=== PATIENT | male | born 1945 | race Caucasian/White ===

== ENCOUNTER 2022-08-01 12:05 | Emergency (ER) | payer MEDICARE, BC ==
[2022-08-01 13:38] LABS: ACETAMINOPHEN 2.8 ug/mL; BLOOD UREA NITROGEN,BUN 16 mg/dL (7.0-18.0); CARBON DIOXIDE,CO2 27.9 mmol/L (21.0-32.0); CHLORIDE,CL 105 mmol/L (98-107); GLUCOSE RANDOM 101 mg/dL (74-106); POTASSIUM,K 3.9 mmol/L (3.5-5.1); SODIUM,NA 140 mmol/L (136-148)
[2022-08-01 13:56] LABS: ESTIMATED GFR 63 mL/min (>60)
[2022-08-01 16:06] LABS: CORONAVIRUS COVID-19 NAA NEGATIVE (NEGATIVE); INFLUENZA A NAA NEGATIVE (NEGATIVE); INFLUENZA B NAA NEGATIVE (NEGATIVE); RESPIRATORY SYNCYTIAL VIR NAA NEGATIVE (NEGATIVE)
[2022-08-02] MEDS ORDERED: LORazepam 1 MG Tab PO ONE (13:38)
== END 2022-08-02 16:00 ==
LOC: MW.ED 12:05
DX: F32.A Depression, unspecified (principal); I10 Essential (primary) hypertension; K21.9 Gastro-esophageal reflux disease without esophagitis; Z79.899 Other long term (current) drug therapy; Z87.891 Personal history of nicotine dependence; Z20.822 Contact with and (suspected) exposure to COVID-19
CPT/HCPCS: 0241U; 36415; 80053; 80143; 80179; 80305; 80307; 81003; 83735; 84443; 84481; 85025; 99284; A9270; 99285

== ENCOUNTER 2024-04-30 07:41 | Day surgery (SDC) | payer MEDICARE, BC ==
[2024-04-30] MEDS ORDERED: Propofol 200 MG/20 ML SDV ONE ×2 (08:25→09:06)
[2024-04-30] MEDS ORDERED: Lidocaine 2% 5 ML SDV ONE (08:26)
[2024-04-30] MEDS ORDERED: Phenylephrine HCl In 0.9% NaCl 1 MG/10 ML Syringe ONE (08:31)
[2024-04-30] MEDS: Lactated Ringers 1,000 ML IV SCH (08:33)
[2024-04-30] MEDS ORDERED: ePHEDrine 50 MG/ML SDV ONE (09:18)
== END 2024-04-30 10:40 | disposition home or self-care (01) ==
LOC: MW.SDS 07:41
PROVIDERS: ATTEND Surgery
DX: K31.7 Polyp of stomach and duodenum (principal); K21.9 Gastro-esophageal reflux disease without esophagitis; K22.89 Other specified disease of esophagus; I10 Essential (primary) hypertension; E78.00 Pure hypercholesterolemia, unspecified; J44.89 Other specified chronic obstructive pulmonary disease; Z87.891 Personal history of nicotine dependence; Z79.82 Long term (current) use of aspirin; Z79.899 Other long term (current) drug therapy
CPT/HCPCS: 43239; J2371; J2704; J7120; 00731; 88305; 99100; J3490